=== PATIENT | male | born 1985 | race Caucasian/White ===

== ENCOUNTER 2022-10-22 13:54 | Emergency (ER) | payer SELFPAY ==
--- NOTE | 2022-10-22 13:55 | XRR_ITS ---
PROCEDURE INFORMATION: Exam: XR Left Wrist Exam date and time: 10/22/2022 2:40 PM Age: 37 years old Clinical indication: Injury or trauma; Other: Object fell on L hand; Swelling (edema); Wrist; Left TECHNIQUE: Imaging protocol: Radiologic exam of the left wrist. Views: 3 or more views. COMPARISON: No relevant prior studies available. FINDINGS: Bones/joints: Normal. Soft tissues: Normal. XR/XR wrist LT min 3V* [id number] IMPRESSION: No acute findings.
[2022-10-22 14:32] VITALS: BP 137/92; PULSE 75; RESP 16; TEMP 36.7; O2SAT 97; BMI 25.0
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
[2022-10-22] MEDS: tetanus-dipt-pertussis 0.5 mL SDV IM (15:00)
== END 2022-10-22 15:05 | disposition home or self-care (01) ==
PROVIDERS: Emergency Provider Emergency Medicine
DX: S61.512A Laceration without foreign body of left wrist, initial encounter (principal); F17.220 Nicotine dependence, chewing tobacco, uncomplicated; X58.XXXA Exposure to other specified factors, initial encounter; Z23 Encounter for immunization
CPT/HCPCS: 12001; 73110; 90471; 90715; 99283